=== PATIENT | male | born 1970 | race Hispanic/Latino ===

== ENCOUNTER 2017-04-09 11:48 | Emergency (ER) | payer MEDICAID ==
--- NOTE | 2017-04-09 13:27 | C.PDOC ---
History Of Present Illness 46 y/o male presents to ED requesting detox from alcohol, cocaine, and amphetamines. Pt states he drinks 10 pints of vodka and some beer a week, last drink was 09:30 this morning. Pt complains of vague abdominal pain. Denies n/v/d , fever, or any other physical complaints at this time. Time Seen by Provider: 04/09/17 13:04 Chief Complaint (Nursing): Substance Abuse History Per: Patient History/Exam Limitations: no limitations Onset/Duration Of Symptoms: Gradual Current Symptoms Are (Timing): Still Present Suicide/Self Injury Attempted (Context): None Modifying Factor(s): Alcohol, Cocaine, Other (amphetamines) Associated Symptoms: denies: Suicidal Thoughts, Suicidal Plan Involuntary Hold By: None Recent travel outside of the [place]: No Additional History Per: Patient Past Medical History Reviewed: Historical Data, Nursing Documentation, Vital Signs Vital Signs: Last Vital Signs Temp 98.3 F 04/09/17 12:07 Pulse 111 H 04/09/17 12:07 Resp 20 04/09/17 12:07 BP 124/85 04/09/17 12:07 Pulse Ox 96 04/09/17 13:30 - Medical History PMH: Diabetes, HTN, Seizures Denies: Hepatitis, HIV, Chronic Kidney Disease, Sexually Transmitted Disease - [facility] Procedures VACCINATION NEC (12/18/13) Family History: States: Unknown Family Hx - Social History Hx Alcohol Use: Yes Hx Substance Use: Yes - Immunization History Hx Tetanus Toxoid Vaccination: No Hx Influenza Vaccination: No Hx Pneumococcal Vaccination: No Review Of Systems Except As Marked, All Systems Reviewed And Found Negative. Constitutional: Negative for: Fever, Chills Cardiovascular: Negative for: Chest Pain, Palpitations Respiratory: Negative for: Cough, Shortness of Breath Gastrointestinal: Positive for: Abdominal Pain. Negative for: Nausea, Vomiting , Diarrhea Genitourinary: Negative for: Dysuria, Frequency, Hematuria Skin: Negative for: Rash, Bruising Neurological: Negative for: Headache, Dizziness Psych: Negative for: Suicidal ideation Physical Exam - Physical Exam Appears: Non-toxic, No Acute Distress Skin: Normal Color, Warm, Dry Head: Atraumatic, Normacephalic Eye(s): bilateral: Normal Inspection, PERRL, EOMI Nose: Normal Oral Mucosa: Moist Neck: Normal ROM, Supple Chest: Symmetrical Cardiovascular: Rhythm Regular, No Murmur Respiratory: Normal Breath Sounds, No Rales, No Rhonchi, No Wheezing Gastrointestinal/Abdominal: Soft, No Tenderness, No Guarding, No Rebound Back: No CVA Tenderness Extremity: Normal ROM, No Pedal Edema Extremity: Bilateral: Atraumatic Neurological/Psych: Oriented x3, Normal Speech, Normal Cognition ED Course And Treatment O2 Sat by Pulse Oximetry: 96 (on RA) Pulse Ox Interpretation: Normal Progress Note: Patient referred to crisis for additional resources for potential detox. Disposition - Disposition Referrals: Alcoholics Anonymous [Outside] Disposition: HOME/ ROUTINE Disposition Time: 14:11 Condition: STABLE Instructions: Abuse of Alcohol (ED) Forms: Reacción (Wolof) - Clinical Impression Clinical Impression: Alcohol abuse, Drug abuse - Scribe Statement The provider has reviewed the documentation as recorded by the Scribe Misael Aden All medical record entries made by the Scribe were at my direction and personally dictated by me. I have reviewed the chart and agree that the record accurately reflects my personal performance of the history, physical exam, medical decision making, and the department course for this patient. I have also personally directed, reviewed, and agree with the discharge instructions and disposition.
[2017-04-09 15:07] VITALS: BP 126/84; PULSE 98; RESP 16; TEMP 98; O2SAT 99
== END 2017-04-09 14:50 | disposition home or self-care (01) ==
LOC: C.ER 11:48
DX: F10.10 Alcohol abuse, uncomplicated (principal); Y90.9 Presence of alcohol in blood, level not specified; F19.10 Other psychoactive substance abuse, uncomplicated